=== PATIENT | male | born 1975 | race Caucasian/White ===

== ENCOUNTER 2020-10-22 11:39 | Outpatient (CLI) | payer BC ==
[2020-10-22 12:27] LABS: Hemoglobin 17.5 g/dL (13.5-17.5); Mean Corpuscular HGB CONC 34.2 g/dL (32.0-36.0); Mean Corpuscular Hemoglobin 30.3 pg (27.0-33.0); Mean Corpuscular Volume 88.4 fl (81.2-95.1); Mean Platelet Volume 11.1 fl (7.4-10.4); Platelet Count 210 10x3/uL (150-450); RBC Distribution Width 12.2 % (11.5-14.5); Red Blood Cell (RBC) Count 5.78 10x6/uL (4.32-5.72); White Blood Cell (WBC) Count 5.1 10x3/uL (3.5-10.5)
[2020-10-22 12:45] LABS: Anion Gap 15 mmol/L (10-20); BUN (Urea Nitrogen) 18 mg/dL (8.9-20.6); Calc. Creatinine Clearance 0 mL/min (70-130); Carbon Dioxide 26 mmol/L (22-29); Chloride 106 mmol/L (98-107); Glucose 95 mg/dL (70-105); Sodium 142 mmol/L (136-145)
[2020-10-22 18:23] LABS: SARS-CoV-2 PCR by NAA Not Detected (NotDetected)
== END 2020-10-22 11:40 | disposition home or self-care (01) ==
LOC: LABBT 11:39
PROVIDERS: ATTEND Urology
DX: Z01.812 Encounter for preprocedural laboratory examination (principal); Z20.822 Contact with and (suspected) exposure to COVID-19; N20.0 Calculus of kidney
CPT/HCPCS: 80048; 85027; U0003; U0005

== ENCOUNTER 2020-10-23 09:15 | Day surgery (SDC) | payer BC ==
[2020-10-22 11:55] VITALS: BMI 21.2
[2020-10-23] MEDS ORDERED: Levofloxacin 500 mg/D5W 100 ml Premix Bag ONE (10:29)
[2020-10-23] MEDS ORDERED: Iothalamate Meglumine 60% 50 ML VIAL FS ONE (10:41)
[2020-10-23] MEDS ORDERED: Fentanyl 100 MCG/2 ML VIAL ONE (11:31)
[2020-10-23] MEDS ORDERED: Dexamethasone 20 MG/5 ML VIAL ONE (12:41)
[2020-10-23] MEDS ORDERED: PROPOFOL 200 MG/20 ML VIAL ONE (12:41)
[2020-10-23] MEDS ORDERED: Ondansetron PF 4 MG/2 ML Vial ONE (12:41)
[2020-10-23] MEDS ORDERED: Lidocaine 1% PF 5 ML VIAL ONE (12:41)
[2020-10-23] MEDS ORDERED: Meperidine HCl/PF 25 MG/ML VIAL ONE (13:42)
[2020-10-23] MEDS ORDERED: Ketorolac Tromethamine 30 MG/ML VIAL ONE (13:51)
[2020-10-23] MEDS ORDERED: Oxybutynin 5 MG TAB ONE (13:51)
== END 2020-10-23 14:47 | disposition home or self-care (01) ==
LOC: SDC 09:15
PROVIDERS: ATTEND Urology
PROC: 0TC78ZZ Extirpation of Matter from Left Ureter, Via Natural or Artificial Opening Endoscopic (ICD-10-PCS; principal; 2020-10-23)
PROC: 0TC38ZZ Extirpation of Matter from Right Kidney Pelvis, Via Natural or Artificial Opening Endoscopic (ICD-10-PCS; principal; 2020-10-23)
PROC: 0TC48ZZ Extirpation of Matter from Left Kidney Pelvis, Via Natural or Artificial Opening Endoscopic (ICD-10-PCS; principal; 2020-10-23)
PROC: 0T788DZ Dilation of Bilateral Ureters with Intraluminal Device, Via Natural or Artificial Opening Endoscopic (ICD-10-PCS; principal; 2020-10-23)
DX: N13.2 Hydronephrosis with renal and ureteral calculous obstruction (principal); Z91.010 Allergy to peanuts; Z91.011 Allergy to milk products
CPT/HCPCS: 74420; 82365; 88300; C2617; J1100; J1885; J1956; J2175; J2405; J2704; J3010; Q9961

== ENCOUNTER 2020-12-02 07:10 | Outpatient (CLI) | payer BC | END 2020-12-02 07:11 | disposition home or self-care (01) | LOC: BICULT 07:10 | PROVIDERS: ATTEND Urology | DX: N20.1 Calculus of ureter (principal) | CPT/HCPCS: 76770 ==

== ENCOUNTER 2023-04-13 15:32 | Outpatient (CLI) | payer BC | END 2023-04-13 15:33 | disposition home or self-care (01) | LOC: CT 15:32 | PROVIDERS: ATTEND Urology | DX: N20.0 Calculus of kidney (principal); R10.9 Unspecified abdominal pain; K59.00 Constipation, unspecified; N40.0 Benign prostatic hyperplasia without lower urinary tract symptoms; Z87.442 Personal history of urinary calculi | CPT/HCPCS: 74176 ==

== ENCOUNTER 2023-12-07 07:36 | Outpatient (CLI) | payer BC | END 2023-12-07 07:37 | disposition home or self-care (01) | LOC: SCSRAD 07:36 | PROVIDERS: ATTEND Urology | DX: N20.0 Calculus of kidney (principal); Z80.42 Family history of malignant neoplasm of prostate; Z98.890 Other specified postprocedural states; N28.89 Other specified disorders of kidney and ureter | CPT/HCPCS: 74018 ==